=== PATIENT | male | born 1985 | race Caucasian/White ===

== ENCOUNTER 2017-02-21 18:15 | Emergency (ER) | payer SELFPAY | END 2017-02-21 23:05 | disposition home or self-care (01) | LOC: D.ER 18:15 | DX: S61.412A Laceration without foreign body of left hand, initial encounter (principal); W45.8XXA Other foreign body or object entering through skin, initial encounter; Y93.89 Activity, other specified; Y92.016 Swimming-pool in single-family (private) house or garden as the place of occurrence of the external cause ==